=== PATIENT | male | born 1975 | race Caucasian/White ===

== ENCOUNTER → 2021-12-23 | Outpatient (CLI) | payer OTHER | LOC: COL.RAD 13:15 | DX: M19.011 Primary osteoarthritis, right shoulder (principal) ==

== ENCOUNTER 2022-06-04 11:57 | Day surgery (SDC) | payer OTHER ==
[~2022-06-04] VITALS: Ht 175.3 cm; Wt 100.0 kg
[2022-06-04 12:33] VITALS: BP 144/99; PULSE 73; TEMP 98.2
[2022-06-04 13:03] LABS: BASO # 0.1 K/mm3 (0.0-0.2); BASO % 1.4 % (0.0-2.0); EOS # 0.6 K/mm3 (0.0-0.7); EOS % 7.5 % (0.0-4.0); GRAN # 3.3 K/mm3 (1.4-6.5); GRAN % 40.1 % (42.2-75.2); HEMATOCRIT 45.3 % (42.0-52.0); HEMOGLOBIN 15.7 g/dl (13.5-18.0); LYMPH # 3.4 K/mm3 (1.2-3.4); LYMPH % 41.9 % (20.0-51.0); MEAN CELL VOLUME 90 fl (80.0-100.0); MEAN CORPUSCULAR HEMOGLOBIN 31 pg (27-31); MEAN CORPUSCULAR HGB CONC 35 g/dl (33.0-37.0); MEAN PLATELET VOLUME 10.1 fl (7.4-10.4); MONO # 0.7 K/mm3 (0.1-0.6); MONO % 8.9 % (1.7-9.3); PLATELET COUNT 283 K/mm3 (130-400); RED BLOOD COUNT 5.03 M/mm3 (4.20-5.60); REDCELL DISTRIBUTION WIDTH-CV 12.3 % (11.5-14.5)
--- NOTE | 2022-06-04 15:35 | NUR ---
procedure completed, pt up in room dressed. dressing over upper chest is clean and dry, pt states has [address] pt had instructions on device, reviewed discharge inst. with pt on care of site, activity, followup in [place], reviewed signs of infection also. pt discharged amb.
== END 2022-06-04 15:35 | disposition home or self-care (01) ==
LOC: COL.CAR 11:57
PROVIDERS: Internal Medicine Interventional Cardiology
DX: I49.3 Ventricular premature depolarization (principal); R55 Syncope and collapse; I51.7 Cardiomegaly
CPT/HCPCS: C1764